=== PATIENT | male | born 1995 | race Caucasian/White ===

== ENCOUNTER → 2017-02-19 | Outpatient (REF) | payer OTHER | LOC: M LAB REF 09:12 | PROVIDERS: ATTEND Physician Assistant | DX: J02.9 Acute pharyngitis, unspecified (principal) ==

== ENCOUNTER → 2018-09-21 | Outpatient (CLI) | payer BC, OTHER ==
--- NOTE | 2018-09-21 17:56 | REP ---
Chest x-ray: Two views. History: Right-sided chest pain. Shortness of breath. . Comparison study: No comparison study . Findings: The lungs are well inflated and free of infiltrate. The pleural angles are sharp. The heart size is normal. Pulmonary vasculature is not increased. No significant bony abnormality is seen. The patient is status post prior median sternotomy. Impression: Prior sternotomy wires. Otherwise negative chest x-ray. Electronically Signed by Dav Neff MD 09/21/2018 05:48 P
== END ==
LOC: M LRY 17:10
PROVIDERS: ATTEND Physician Assistant
DX: R07.9 Chest pain, unspecified (principal); Z98.890 Other specified postprocedural states